=== PATIENT | male | born 1965 | race Caucasian/White ===

== ENCOUNTER 2017-10-10 09:15 | Observation (INO) ==
[2017-10-10] MEDS ORDERED: 0.9 % Sodium Chloride 1,000 ML IVC ONE (09:20)
[2017-10-10] MEDS ORDERED: Ondansetron 4 MG/2 ML VIAL IVP ONE (09:20)
[2017-10-10] MEDS ORDERED: Ketorolac 15 MG/ML VIAL IVP ONE (09:21)
[2017-10-10] MEDS ORDERED: *HR* FentaNYL (PF) 100 MCG/2 ML VIAL IVP ONE (09:21)
--- NOTE | 2017-10-10 09:24 | Emergency Department Note ---
Disposition Clinical Impression: Elevated blood pressure reading Urolithiasis Qualifiers: Urinary calculus location: ureter Qualified Code(s): N20.1 - Calculus of ureter Disposition: Admitted As Inpatient Condition: Fair Referrals: Faviola Monteiro CNP [Primary Care Provider] - Forms: ED Satisfaction Letter, Work/School Release Time of Disposition: 10:37 General Adult HPI - General Stated complaint: right flank pain Time Seen by Provider: 10/10/17 09:17 Source: patient Mode of arrival: EMS Limitations: no limitations Nursing Notes Reviewed: Yes Vital Signs Reviewed: Yes - History of Present Illness HPI Narrative: 52-year-old male with a history of recurrent kidney stones presents for evaluation of flank pain. Patient was seen last week and diagnosed with a kidney stone. Patient states that his pain is not well controlled. Patient notes that following his last ED visit his pain seemed to improve however over the past 2 days the patient's been having increasing pain. Patient was seen at an outside hospital for evaluation but declined hospitalization at that time. Patient states that he has been having episodes of emesis. Patient states that he has been taking his Percocet as scheduled but does not improve his pain. Denies any fevers. Denies any difficulty urinating. - Related Data Home Medications Medication Instructions Recorded Confirmed Acetaminophen [Tylenol] 325 mg PO Q6HR PRN 05/26/17 06/22/17 Gabapentin [Neurontin] 800 mg PO TID 05/26/17 06/22/17 OxyCODONE/APAP 5/325 [Percocet 1 tab PO Q4-6H PRN 05/26/17 06/22/17 5/325 MG] Previous Rx's Medication Instructions Recorded OxyCODONE Immed Rel [Roxicodone 5 5 mg PO Q6HR PRN #25 tablet 06/22/17 MG] Ketorolac [Toradol] 10 mg PO Q6HR 3 Days #12 tablet 08/30/17 Nitrofurantoin Monohyd/M-Cryst 100 mg PO BID #14 capsule 08/30/17 [Macrobid 100 mg Capsule] methylPREDNISolone [Medrol] 1 each PO DAILY #1 pack 08/30/17 Ondansetron ODT [Zofran ODT] 4 mg SL Q6HR PRN #15 tab.rapdis 09/10/17 HYDROcodone/Acet 5/325 mg [[place] 1 - 2 tab PO Q4H PRN 3 Days #15 tab 10/06/17 5-325 mg] Ibuprofen [Motrin] 600 mg PO Q6HR PRN #20 tab 10/06/17 Ondansetron ODT [Zofran ODT] 4 mg SL Q6HR PRN #7 tab.rapdis 10/06/17 Tamsulosin [Flomax] 0.4 mg PO DAILY #10 cap.er.24h 10/06/17 Allergies Allergy/AdvReac Type Severity Reaction Status Date / Time codeine AdvReac Itching Verified 08/30/17 18:10 tramadol AdvReac Itching Verified 08/30/17 18:10 All systems ED: reviewed and negative except as stated. Constitutional: Denies: fever Cardiovascular: Denies: chest pain Respiratory: Denies: cough, dyspnea Gastrointestinal: Reports: abdominal pain, nausea, vomiting, constipation Past Medical History - Past Medical History Source: patient Medical history: Reports: arthritis, DVT, GERD, kidney stones, liver disease, venous stasis, other Surgical history: Reports: cholecystectomy, orthopedic, other, other Psychiatric history: Reports: anxiety, depression, panic disorder - Social History Smoking Status: Current every day smoker Smokeless Tobacco Status: No Alcohol use: Reports: none Drug use: Reports: none Physical Exam - General Limitations: no limitations General appearance: alert, in no apparent distress - Head Head exam: atraumatic, normocephalic, normal inspection - Eye Eye exam: Present: normal appearance, PERRL, EOMI - ENT ENT exam: normal exam, normal oropharynx, mucous membranes moist - Neck Neck exam: Present: normal inspection - Chest Chest inspection: Present: normal inspection - Respiratory Respiratory exam: Present: normal lung sounds bilaterally - Cardiovascular Cardiovascular exam: Present: regular rate, normal rhythm - Abdominal Exam Abdominal exam: Present: soft, Non-Tender. Absent: guarding, rebound - Extremities Exam Extremities exam: Present: normal inspection - Back Exam Back exam: Present: normal inspection. Absent: CVA tenderness (R), CVA tenderness (L) - Neurological Exam Neurological exam: Present: alert, oriented X3, CN II-XII intact - Skin Skin exam: Present: warm, dry, intact, normal color Course Course Narrative: Patient seen and examined. Patient appears to be uncomfortable. Patient is diagnosed with a 6 mm obstructing stone last . Patient does have follow -up scheduled tomorrow on 9:15 however the patient states that he does not feel he will be able to make that appointment. Patient will get basic labs and kidney function. Patient also get appropriate pain control. We will discuss the case with the on-call urologist. - Reevaluation(s) Reevaluation #1: Patient seen and examined. Patient's resting comfortably. Patient is agreeable with plan of care was admission and urology consult. Time: 10:36 - Consultations Consultation #1: Spoke with Dr. Cadena who stated admit to hospitalist and will see the patient as a consult. Time: 10:32 Vital Signs Temperature 97.9 F 10/10/17 09:21 Pulse Rate 92 10/10/17 09:21 Respiratory Rate 18 10/10/17 09:21 Blood Pressure 154/94 10/10/17 09:21 O2 Sat by Pulse Oximetry 98 10/10/17 09:21 Temperature 97.9 F 10/10/17 09:21 Pulse Rate 92 10/10/17 09:24 Respiratory Rate 18 10/10/17 09:24 Blood Pressure 154/94 10/10/17 09:24 O2 Sat by Pulse Oximetry 96 10/10/17 09:24 Oxygen Delivery Oxygen Delivery Room Air Medical Decision Making - MDM Narrative Medical decision making narrative: Patient presented with concerns of renal colic. Patient was recently evaluated within the past week and diagnosed a 6 mm obstructing stone. Patient failed outpatient pain therapy. Patient presented today with worsening pain and vomiting. Had basic labs including kidney function as well as urinalysis. Patient's pain was controlled and the emergency department. Discussed the case with the on-call urologist who will evaluate the patient and consult with the hospitalist. - Lab Data Lab results reviewed: Yes I reviewed the patient's lab results. Result diagrams: 10/10/17 09:20 10/10/17 09:20 Lab Results 10/10/17 10/10/17 10/10/17 Range/Units 09:20 09:20 10:00 WBC 7.0 (4.3-11.1) K/mcL RBC 4.57 (4.19-5.50) M/mcL Hgb 14.8 (12.9-16.9) g/dL Hct 42.7 (37.5-50.1) % MCV 93.4 (83.0-100.0) fL MCH 32.4 (28.0-33.3) pg MCHC 34.7 (31.6-35.5) g/dL RDW 13.0 (11.5-14.5) % Plt Count 262 (140-400) K/mcL MPV 9.8 (9.4-12.4) fL Immature Gran % 0.3 (0-4) % Seg Neutrophils % 62.0 % Lymphocytes % 28.2 % Monocytes % 8.2 % Eosinophils % 0.9 % Basophils % 0.4 % Neutrophils # 4.3 (1.6-8.9) K/mcL Lymphocytes # 2.0 (0.6-4.6) K/mcL Monocytes # 0.6 (0.0-1.3) K/mcL Eosinophils # 0.1 (0.0-0.6) K/mcL Basophils # 0.0 (0.0-0.2) K/mcL Sodium 139 (136-145) mEq/L Potassium 3.3 L (3.5-5.1) mEq/L Chloride 112 H (98-107) mEq/L Carbon Dioxide 25 (23-29) mEq/L BUN 11 (6-20) mg/dL Creatinine 1.00 (0.70-1.30) mg/dL Est GFR ( Amer) > 60 (> 60) Est GFR (Non-Af Amer) > 60 (> 60) BUN/Creatinine Ratio 11 (6-26) Glucose 119 H (70-105) mg/dL Calculated Osmolality 289 (280-300) Calcium 9.4 (8.6-10.3) mg/dL Urine Color Dark Yellow (Yellow) Urine Clarity Clear (Clear) Urine pH 6.0 (5.0-8.0) pH Units Ur Specific [place] > 1.030 H (1.010-1.025) Urine Protein 30 H (Neg-Trace) mg/dL Urine Glucose (UA) Normal (Normal) mg/dL Urine Ketones Negative (Negative) mg/dL Urine Blood Large H (Negative) Urine Nitrite Negative (Negative) Urine Bilirubin Negative (Negative) Urine Urobilinogen Normal (Normal) mg/dL Ur Leukocyte Esterase Negative (Negative) Urine Microscopic RBC TNTC H (0-3) per hpf Urine Microscopic WBC 5-15 H (0-3) per hpf Ur Squamous Epith Cells Moderate H (None-Few) per lpf Urine Bacteria None Seen (None-Few) per hpf Hyaline Casts None Seen (None-Few) per lpf Ur Culture Indicated? NO (NO) - Radiology Data Radiology results reviewed: Yes I reviewed the patient's radiology results. Reviewed the radiology results of last . Adry - Adry Situation: Demographics Background: Presenting Complaint Assessment: Vital Signs, Course and respsone to treatment, Patient/Family Expectation Recommendation: Recommendation based on pending studies, treatments, or consults Adry Report Given to: Dr. Tamika Rider Repor Time: 10:36
--- NOTE | 2017-10-10 09:30 | Emergency Department Note ---
Disposition Clinical Impression: Elevated blood pressure reading Urolithiasis Qualifiers: Urinary calculus location: ureter Qualified Code(s): N20.1 - Calculus of ureter Disposition: Admitted As Inpatient Condition: Fair General Adult HPI - General Chief complaint: ED Abdominal Pain Stated complaint: right flank pain Time Seen by Provider: 10/10/17 09:17 Source: patient Mode of arrival: EMS Limitations: no limitations - History of Present Illness Pain Scale: 8 - Related Data Home Medications Medication Instructions Recorded Confirmed Gabapentin [Neurontin] 800 mg PO TID 10/10/17 10/10/17 OxyCODONE/APAP 5/325 [Percocet 1 tab PO QID PRN 10/10/17 10/10/17 5/325 MG] Allergies Allergy/AdvReac Type Severity Reaction Status Date / Time codeine AdvReac Itching Verified 10/10/17 11:08 tramadol AdvReac Itching Verified 10/10/17 11:08 Constitutional: Denies: fever Cardiovascular: Denies: chest pain Respiratory: Denies: cough, dyspnea Gastrointestinal: Reports: abdominal pain, nausea, vomiting, constipation Past Medical History - Past Medical History Medical history: Reports: arthritis, DVT, GERD, kidney stones, liver disease, venous stasis, other Surgical history: Reports: cholecystectomy, orthopedic, other, other Psychiatric history: Reports: anxiety, depression, panic disorder - Social History Smoking Status: Current every day smoker Smokeless Tobacco Status: No Alcohol use: Reports: none Drug use: Reports: none Physical Exam - General Limitations: no limitations General appearance: alert, in no apparent distress Course Vital Signs Temperature 97.9 F 10/10/17 09:21 Pulse Rate 92 10/10/17 09:21 Respiratory Rate 18 10/10/17 09:21 Blood Pressure 154/94 10/10/17 09:21 O2 Sat by Pulse Oximetry 98 10/10/17 09:21 Temperature 98.0 F 10/10/17 14:19 Pulse Rate 72 10/10/17 14:19 Respiratory Rate 18 10/10/17 14:19 Blood Pressure 98/62 10/10/17 14:19 O2 Sat by Pulse Oximetry 97 10/10/17 14:19 Oxygen Delivery Oxygen Delivery Room Air Medical Decision Making - Lab Data Result diagrams: 10/10/17 09:20 10/10/17 09:20 Lab Results 10/10/17 10/10/1710/10/18 Range/Units 09:20 09:20 10:00 WBC 7.0 (4.3-11.1) K/mcL RBC 4.57 (4.19-5.50) M/mcL Hgb 14.8 (12.9-16.9) g/dL Hct 42.7 (37.5-50.1) % MCV 93.4 (83.0-100.0) fL MCH 32.4 (28.0-33.3) pg MCHC 34.7 (31.6-35.5) g/dL RDW 13.0 (11.5-14.5) % Plt Count 262 (140-400) K/mcL MPV 9.8 (9.4-12.4) fL Immature Gran % 0.3 (0-4) % Seg Neutrophils % 62.0 % Lymphocytes % 28.2 % Monocytes % 8.2 % Eosinophils % 0.9 % Basophils % 0.4 % Neutrophils # 4.3 (1.6-8.9) K/mcL Lymphocytes # 2.0 (0.6-4.6) K/mcL Monocytes # 0.6 (0.0-1.3) K/mcL Eosinophils # 0.1 (0.0-0.6) K/mcL Basophils # 0.0 (0.0-0.2) K/mcL Sodium 139 (136-145) mEq/L Potassium 3.3 L (3.5-5.1) mEq/L Chloride 112 H (98-107) mEq/L Carbon Dioxide 25 (23-29) mEq/L BUN 11 (6-20) mg/dL Creatinine 1.00 (0.70-1.30) mg/dL Est GFR ( Amer) > 60 (> 60) Est GFR (Non-Af Amer) > 60 (> 60) BUN/Creatinine Ratio 11 (6-26) Glucose 119 H (70-105) mg/dL Calculated Osmolality 289 (280-300) Calcium 9.4 (8.6-10.3) mg/dL Urine Color Dark Yellow (Yellow) Urine Clarity Clear (Clear) Urine pH 6.0 (5.0-8.0) pH Units Ur Specific [place] > 1.030 H (1.010-1.025) Urine Protein 30 H (Neg-Trace) mg/dL Urine Glucose (UA) Normal (Normal) mg/dL Urine Ketones Negative (Negative) mg/dL Urine Blood Large H (Negative) Urine Nitrite Negative (Negative) Urine Bilirubin Negative (Negative) Urine Urobilinogen Normal (Normal) mg/dL Ur Leukocyte Esterase Negative (Negative) Urine Microscopic RBC TNTC H (0-3) per hpf Urine Microscopic WBC 5-15 H (0-3) per hpf Ur Squamous Epith Cells Moderate H (None-Few) per lpf Urine Bacteria None Seen (None-Few) per hpf Hyaline Casts None Seen (None-Few) per lpf Ur Culture Indicated? NO (NO) Attestation Statement - Attestation Attestation: I examined this patient and my medical decision-making was reviewed with the Resident Physician. I agree with the documented findings, disposition and treatment plan as described except to the extent set forth below. PT to ED with right flank pain. Seen last week and dx with 6mm obstructing stone. States pain has not changed. Apt to see urology tomorrow. Has been taking PErcocet. Pt sitting on the side of the bed in no distress .RIght CVA tenderness on exam. Plan. PAin control, UA, discuss with urology.
[2017-10-10 09:40] LABS: Basophils % 0.4 %; Eosinophils # 0.1 K/mcL (0.0-0.6); Eosinophils % 0.9 %; Hematocrit 42.7 % (37.5-50.1); Hemoglobin 14.8 g/dL (12.9-16.9); Immature Granulocytes % 0.3 % (0-4); Lymphocytes % 28.2 %; Mean Corpuscular HGB Conc 34.7 g/dL (31.6-35.5); Mean Corpuscular Hemoglobin 32.4 pg (28.0-33.3); Mean Corpuscular Volume 93.4 fL (83.0-100.0); Mean Platelet Volume 9.8 fL (9.4-12.4); Monocytes # 0.6 K/mcL (0.0-1.3); Monocytes % 8.2 %; Neutrophils # 4.3 K/mcL (1.6-8.9); Platelet Count 262 K/mcL (140-400); Red Blood Count 4.57 M/mcL (4.19-5.50)
[2017-10-10 10:00] LABS: BUN/Creatinine Ratio 11 (6-26); Blood Urea Nitrogen 11 mg/dL (6-20); Calcium 9.4 mg/dL (8.6-10.3); Carbon Dioxide 25 mEq/L (23-29); Chloride 112 mEq/L (98-107); Glucose 119 mg/dL (70-105); Osmolality,Calculated 289 (280-300); Potassium 3.3 mEq/L (3.5-5.1); Sodium 139 mEq/L (136-145); eGFR For African Americans > 60 (> 60); eGFR For Non-African Americans > 60 (> 60)
[2017-10-10 10:12] LABS: Bilirubin,Urine Negative (Negative); Blood,Urine Large (Negative); Clarity,Urine Clear (Clear); Color,Urine Dark Yellow (Yellow); Glucose,Urine (UA) Normal (Normal); Ketones,Urine Negative (Negative); Leukocyte Esterase,Urine Negative (Negative); Nitrite,Urine Negative (Negative); Protein,Urine 30 mg/dL (Neg-Trace); Specific Gravity,Urine > 1.030 (1.010-1.025); Urobilinogen,Urine Normal (Normal)
[2017-10-10 10:15] LABS: Bacteria,Urine None Seen per hpf (None-Few); Hyaline Casts,Urine None Seen per lpf (None-Few); RBC,Urine TNTC per hpf (0-3); Squamous Epithelial Cell,Urine Moderate per lpf (None-Few)
[2017-10-10] MEDS ORDERED: Naloxone 0.4 MG/ML INJ IVP PRN (11:12)
--- NOTE | 2017-10-10 11:23 | Internal Med History&Physical ---
Date of Encounter: 10/10/17 Time of Encounter: 11:20 Internal Medicine - H&P: HPI Chief complaint: Back pain Admitted From: Emergency Dept Plans for Post Hospital Care: Home History of present illness: Mr. Lawson is a 52 year old male is medical history of nephrolithiasis who presented with intractable back pain related to his renal stones. Patient was seen in the emergency room roughly 4 days ago and was evaluated with a 6 mm obstructing stone in the mid to distal ureter on the right side. He was given IV pain medications and sent home with prescription of Toradol as well as opiates that he continues to take for his chronic back pain he started noticing some relief in his pain immediately upon discharge but then the pain came back and has been very severe over the last 24-48 hours. He is also complaining of nausea and vomiting for at least 2 days out of the last 4 days. His pain is described as sharp and located in the back it does not radiate to his groin and has improved to 8/10 from 10/10 when he initially arrived to the ER. He also is feeling nauseated but has not thrown up since he has been in the ER. He denies any visible chills, shakes at this point. He did complete a one-week course of oral antibiotics about 2 weeks ago. Since he has failed an outpatient treatment for renal stones, he has been advised admission with consult to urology and he is nothing by mouth at this time and hospital medicine will be admitting him in consultation with urology service. Past Med Surg Social Fam HX - Past Medical History Medical history: arthritis, DVT, GERD, kidney stones, liver disease, venous stasis, other Psychiatric history: anxiety, depression, panic disorder - Past Surgical History Surgical History: cholecystectomy, orthopedic, other, other - Social History Smoking Status: Current every day smoker Smokeless Tobacco Status: No Alcohol use: none Drug use: none - Family History Father Adopted: No Hx Family Endocrine Disorder: Yes (Diabetes) - Additional Family History Additional family history: Mother had a history of heart problems unsure of the exact history at this point Internal Medicine - H&P: Meds Gabapentin [Neurontin] 800 mg PO TID 10/10/17 [History] OxyCODONE/APAP 5/325 [Percocet 5/325 MG] 1 tab PO QID PRN 10/10/17 [History] 3 Allergy/AdvReac Type Severity Reaction Status Date / Time codeine AdvReac Itching Verified 10/10/17 11:08 tramadol AdvReac Itching Verified 10/10/17 11:08 All Systems PM: A 10-system review of systems was performed and is negative for pertinent findings except as documented above in the HPI. - Constitutional Vitals: Temp Pulse Resp BP Pulse Ox 98.3 F 92 18 154/94 96 10/10/17 11:10 10/10/17 09:24 10/10/17 11:10 10/10/17 11:10 10/10/17 09:24 Exam: GENERAL: Alert, moderate distress, cooperative EYES: PERRLA, EOMI EARS: External ears normal, canals clear OROPHARYNX: Lips, mucosa, and tongue normal. Teeth and gums normal. Oropharynx normal. NECK: No jugulovenous distention, No carotid bruits, Carotid pulse normal contour, Supple LUNGS: Lungs clear to auscultation, Good diaphragmatic excursion CARDIAC: Normal S1 and S2; no rubs, murmurs, or gallops ABDOMEN: Abdomen soft, non-tender, BS normal, No masses or organomegaly BACK- mild CVA TTP on right side. EXTREMITIES: Extremities normal, no deformities, edema, clubbing or skin discoloration. Good capillary refill., No ulcers NEURO: Reflexes normal and symmetric. Sensation grossly intact, Cranial nerves II-XII intact PULSES: 2+ radial, 2+ carotid Rest of the exam is non contributory Internal Med - H&P Results - Labs CBC & Chem 7: 10/10/17 09:20 10/10/17 09:20 - Assessment and plan (1) Urolithiasis Current Visit: Yes Status: Acute Assessment and plan: Has a 6 mm obstructing stone in the right mid to distal ureter along with evidence of hematuria and his UA. Patient also has an 8 mm nonobstructing stone on the left side. He has failed outpatient management for pain control and continues to experience escalation of his pain as well as nausea and vomiting. We will admit him to medicine service and started on IV fluids. For pain control I would start him on Toradol 30 mg at least every 6 hours. I will also start him on a max and consult urology for further care. He might need intervention, cystoscopy, ureteral stenting. He does not have indication for infection nor a white count suggesting an underlying UTI and I would hold off antibiotics at this time. He did hint that he knows it is probably a calcium oxalate stones. I have encouraged him to keep up his hydration as an outpatient. Qualifiers: Urinary calculus location: ureter Qualified Code(s): N20.1 - Calculus of ureter (2) Elevated blood pressure reading Current Visit: Yes Status: Acute Assessment and plan: one time reading. Patient does not have a history of hypertension. Most likely from ongoing pain. We will continue to monitor this closely on the floor and check his vitals q shift (3) Lumbar radiculitis Current Visit: No Status: Chronic Assessment and plan: History of degenerative back disease. He takes as needed opiates as an outpatient in addition to gabapentin. I will continue his gabapentin but hold onto resuming his opiates because he will be on IV Toradol. Once have a clear direction from urology and he has a a procedure done or the resolution of his symptoms then we would consider resuming his opiates - Time Spent With Patient Total time spent is greater than 50% in coordination of care (as documented) at patient's floor/unit and/or counseling patient: Greater than 35 minutes
[2017-10-10] MEDS: Ketorolac 30 MG/ML VIAL IVP PRN ×2 (12:21→18:27)
[2017-10-10] MEDS: Ondansetron 4 MG/2 ML VIAL IVP PRN ×2 (12:22→18:27)
[2017-10-10] MEDS: 0.9 % Sodium Chloride 1,000 ML IVC SCH ×2 (12:22→21:47)
[2017-10-10] MEDS ORDERED: *HR* OxyCODONE/APAP 5/325 TABLET PO PRN (14:22)
--- NOTE | 2017-10-10 14:28 | Urology - Consult Note ---
Date of Encounter: 10/10/17 Time of Encounter: 14:25 - Assessment and Plan (1) Urolithiasis Current Visit: Yes Status: Acute Assessment and plan: We will obtain KUB for evaluation of status of stone. Patient will be tentatively scheduled tomorrow for right ureteroscopic stone extraction if he fails to pass his stone tonight. Qualifiers: Urinary calculus location: ureter Qualified Code(s): N20.1 - Calculus of ureter Urology CN:HPI Consult date: 10/10/17 Reason for consult Urology: Other (right ureteral stone) Requesting physician: Chacorta Yeager History of present illness: Tino is a 52-year-old male with a history of right ureteral stone. Patient was in the emergency department last with severe right flank pain. He presented back today secondary to worsening pain of tenderness 10. Pain was sharp in nature with radiation to his right groin. Patient also with nausea vomiting. No fevers. Laboratory values were viewed and unremarkable. Past Med Surg Social Fam HX - Past Medical History Medical history: arthritis, DVT, GERD, kidney stones, liver disease, venous stasis, other Psychiatric history: anxiety, depression, panic disorder - Past Surgical History Surgical History: cholecystectomy, orthopedic, other, other - Social History Smoking Status: Current every day smoker Smokeless Tobacco Status: No Alcohol use: none Drug use: none - Family History Father Adopted: No Hx Family Endocrine Disorder: Yes (Diabetes) Medications and Allergies Gabapentin [Neurontin] 800 mg PO TID 10/10/17 [History] OxyCODONE/APAP 5/325 [Percocet 5/325 MG] 1 tab PO QID PRN 10/10/17 [History] 3 Allergy/AdvReac Type Severity Reaction Status Date / Time codeine AdvReac Itching Verified 10/10/17 11:08 tramadol AdvReac Itching Verified 10/10/17 11:08 Review of Systems - Constitutional no chills, no fever(s) - EENT Nose, mouth and throat: no dizziness - Cardiovascular no chest pain - Respiratory no cough, no dyspnea - Gastrointestinal nausea, vomiting - Genitourinary as per HPI - Musculoskeletal no back pain, no muscle weakness - Integumentary no erythema, no swelling - Neurological no confusion - Psychiatric no confusion, no depression - Hematologic/Lymphatic no easy bleeding, no lymphadenopathy - Allergic/Immunologic no throat swelling, no wheezing Exam Initial Vital Signs Temp Pulse Resp BP Pulse Ox 97.9 F 92 18 154/94 98 10/10/17 09:21 10/10/17 09:21 10/10/17 09:21 10/10/17 09:21 10/10/17 09:21 General/Neuological: alert and oriented x 3 Eyes: normal pupils, non-icteric Neck: no lymphadenopathy noted, supple to touch ABD: soft, nontender, no masses palpated, good bowel sounds Back: no pain on percussion bilaterally Skin: no rashes noted Musculoskeletal: normal gait, FROMx4 Urology Results - Labs 10/10/17 09:20 10/10/17 09:20 Abnormal lab results Potassium 3.3 mEq/L (3.5-5.1) L 10/10/17 09:20 Chloride 112 mEq/L (98-107) H 10/10/17 09:20 Glucose 119 mg/dL (70-105) H 10/10/17 09:20 Ur Specific [place] > 1.030 (1.010-1.025) H 10/10/17 10:00 Urine Protein 30 mg/dL (Neg-Trace) H 10/10/17 10:00 Urine Blood Large (Negative) H 10/10/17 10:00 Urine Microscopic RBC TNTC per hpf (0-3) H 10/10/17 10:00 Urine Microscopic WBC 5-15 per hpf (0-3) H 10/10/17 10:00 Ur Squamous Epith Cells Moderate per lpf (None-Few) H 10/10/17 10:00 All other labs normal. - Imaging CT scan - abdomen: image reviewed CT scan - pelvis: image reviewed Consult Discharge Plan - Plan Referrals: Faviola Monteiro, [employer] [Primary Care Provider] -
[2017-10-10] MEDS: Gabapentin 400 MG CAPSULE PO SCH ×2 (14:56→22:14)
[2017-10-10] MEDS: Nicotine 21 MG PATCH.TD24 TD SCH (14:56)
--- NOTE | 2017-10-10 19:10 | Anesthesia Evaluation PreOp ---
Date of Encounter: 10/10/17 Time of Encounter: 19:07 - Past History Planned Operation: Right ureteral stone Cardiac History: Denies any Significant Hx Pulmonary History: Smoker, Pack/yr (35pk/tr) APPLICATIONS PROGRAMMER ANALYST History: Other (RLS, legally blind Left Eye,) Other Medical History: GERD Anesthesia History: No Prior Anesthetic Complications, Past Anesthesia (Renal Stones, wrist) Alcohol Use: none Drug use: none Medications and Allergies Gabapentin [Neurontin] 800 mg PO TID 10/10/17 [History] OxyCODONE/APAP 5/325 [Percocet 5/325 MG] 1 tab PO QID PRN 10/10/17 [History] 3 Allergy/AdvReac Type Severity Reaction Status Date / Time codeine AdvReac Itching Verified 10/10/17 11:08 tramadol AdvReac Itching Verified 10/10/17 11:08 - Meds/Allergy Pre-op Review Medications Reviewed: Yes Allergies Reviewed: Yes Beta Blockers on Current Med List: No Anesthesia Results - Labs 10/10/17 09:20 10/10/17 09:20 Exercise Stress Name: Tino Lawson Date of Study: 11/09/2016 Date: 1965 Ht: 69.0in Medical Record#: [id number] Age: 51 Wt: 260.0lb Gender: Male BSA: 2.31 Order #: [id number] Location: [facility] OP Room #: Reading Physician: Ghada Isaacs DO Technologist: Elayne Leonard RRT Supervising Provider: Jose Eduardo Knowles CNP Primary Physician: Zenon Lin MD Ordering Physician: Faviola Monteiro CNP Indication: Shortness of breath, Chest Pain Impressions: Stress ECG was negative for ischemia. Exercise capacity was good. Normal hemodynamic response to exercise. No arrhythmias noted with stress. Patient had no chest pain with stress. Findings: Baseline ECG demonstrates NSR, HR 82 bpm with possible RV conduction delay. Stress ECG is negative for ischemia. No arrhythmias noted during exercise or recovery. The patient demonstrated a normal blood pressure response. The exercise capacity was good. No chest pain during stress procedure. - Imaging EKG: report reviewed (colonoscopy, EGD, renal stones, varicose veins, GB, R. wrist ORIF, Low back mass,) Anesthesia Exam Vital Signs/O2 Sat, Most Current Temp Pulse Resp BP Pulse Ox 98.0 F 72 18 98/62 97 10/10/17 14:19 10/10/17 14:19 10/10/17 14:19 10/10/17 14:19 10/10/17 14:19 - HEENT Pupil (Motor): Pupils equal, EOMI Mallampati: II Teeth: Normal Oral Opening: Greater than 3 - APPLICATIONS PROGRAMMER ANALYST LOC: Oriented APPLICATIONS PROGRAMMER ANALYST Motor: Normal RUE, Normal LUE, Normal RLE, Normal LLE, Normal Face APPLICATIONS PROGRAMMER ANALYST Sensory: Normal: RUE, LUE, RLE, LLE, Face - Cardiac Rhythm: Regular Murmur: None JVD: No Carotid Bruit: No - Pulmonary Breath Sounds: bilateral Clear Respiratory Effort: Symmetrical Anesthesia Assess/Plan ASA Score: 2 Modified Adrienne Scale for Level of Consciousness: Cooperative, oriented, and tranquil Anesthetic Plan: General Autologous Blood: Yes Monitoring Plan: Standard Monitors Recovery Plan: PACU
[2017-10-10] MEDS ORDERED: OXYCODONE Oral CONC 10 MG/0.5 ML ORAL.SYG SL PRN (21:32)
[2017-10-10] MEDS: OXYCODONE Oral CONC 10 MG/0.5 ML ORAL.SYG SL PRN (22:54)
[2017-10-11] MEDS: Ondansetron 4 MG/2 ML VIAL IVP PRN ×3 (00:35→12:40)
[2017-10-11] MEDS: OXYCODONE Oral CONC 10 MG/0.5 ML ORAL.SYG SL PRN ×2 (05:41→12:37)
[2017-10-11] MEDS: 0.9 % Sodium Chloride 1,000 ML IVC SCH (06:01)
[2017-10-11 06:26] LABS: Basophils % 0.6 %; Eosinophils # 0.1 K/mcL (0.0-0.6); Eosinophils % 0.9 %; Hematocrit 36.7 % (37.5-50.1); Immature Granulocytes % 0.4 % (0-4); Lymphocytes # 2.1 K/mcL (0.6-4.6); Lymphocytes % 38.9 %; Mean Corpuscular HGB Conc 33.5 g/dL (31.6-35.5); Mean Corpuscular Hemoglobin 32.1 pg (28.0-33.3); Mean Corpuscular Volume 95.8 fL (83.0-100.0); Mean Platelet Volume 10.3 fL (9.4-12.4); Monocytes # 0.3 K/mcL (0.0-1.3); Monocytes % 6.4 %; Neutrophils # 2.8 K/mcL (1.6-8.9); Platelet Count 205 K/mcL (140-400); Red Blood Count 3.83 M/mcL (4.19-5.50); Red Cell Distribution Width 13.1 % (11.5-14.5); Segmented Neutrophils % 52.8 %
[2017-10-11 06:30] LABS: Hemoglobin 12.3 g/dL (12.9-16.9)
[2017-10-11 06:51] LABS: Alanine Aminotransferase 24 Units/L (7-52); Albumin 3.2 g/dL (3.5-5.7); Albumin/Globulin Ratio 1.6 (1.1-2.2); Alkaline Phosphatase 56 Units/L (34-104); Aspartate Amino Transferase 19 Units/L (13-39); BUN/Creatinine Ratio 13 (6-26); Bilirubin,Total 0.4 mg/dL (0.3-1.0); Blood Urea Nitrogen 11 mg/dL (6-20); Calcium 8.4 mg/dL (8.6-10.3); Carbon Dioxide 22 mEq/L (23-29); Chloride 114 mEq/L (98-107); Glucose 91 mg/dL (70-105); Osmolality,Calculated 293 (280-300); Potassium 3.8 mEq/L (3.5-5.1); Sodium 142 mEq/L (136-145); Total Protein 5.2 g/dL (6.4-8.9); eGFR For African Americans > 60 (> 60); eGFR For Non-African Americans > 60 (> 60)
[2017-10-11] MEDS ORDERED: *HR* Promethazine 25 MG/ML VIAL IVP PRN ×2 (08:06→15:37)
--- NOTE | 2017-10-11 08:08 | Internal Med Progress Note ---
<Perfecto Du - Last Filed: 10/11/17 11:36> Date of Encounter: 10/11/17 Time of Encounter: 08:07 - Assessment and plan (1) Urolithiasis Current Visit: Yes Status: Acute Assessment and plan: - Has a 6 mm obstructing stone in the right mid to distal ureter along with evidence of hematuria and his UA. - Patient also has an 8 mm nonobstructing stone on the left side. - He has failed outpatient management for pain control and continues to experience escalation of his pain as well as nausea and vomiting. - Urology was consulted and emergency room. Has evaluated and will plan for kidney stone extractions afternoon - Repeat KUB performed by urology shows distal migration of the stone now located in the mid sacrum Plan - Toradol 30 mg at least every 6 hours and sublingual oxycodone for his pain. - Continue Flomax - Scheduled for ureteral stone extraction if he does not pass importance afternoon - Previous history of kidney stones, possibly calcium oxalate in origin. I have encouraged him to keep up his hydration as an outpatient. Qualifiers: Urinary calculus location: ureter Qualified Code(s): N20.1 - Calculus of ureter (2) Lumbar radiculitis Current Visit: No Status: Chronic Assessment and plan: - History of degenerative back disease. -He takes as needed opiates as an outpatient in addition to gabapentin. - States back pain well controlled, kidney stone pain bothering him now Plan - Continue pain medications as above for kidney stone (3) Elevated blood pressure reading Current Visit: Yes Status: Acute Assessment and plan: One-time reading on presentation likely secondary to pain Currently well controlled at 103/73 No reported history of hypertension, we will continue to monitor (4) Tobacco use Current Visit: Yes Status: Acute Assessment and plan: - Current every day smoker - He was encouraged to quit, however is not ready at this time (5) DVT prophylaxis Current Visit: Yes Status: Acute Assessment and plan: - Early ambulation given hematuria. We will hold off on pharmacologic anticoagulation of this time - Time Spent With Patient Total time spent is greater than 50% in coordination of care (as documented) at patient's floor/unit and/or counseling patient: - Subjective Interval history: Patient was seen and examined this morning at bedside. He reports that his pain is improved from admission however still present. States that it started 5 days ago located in his right flank and is now traveled around the back is sitting in the right pelvis. States he is still experiencing some nausea however is improved, no reports of vomiting. He has been evaluated by urology and is tentatively scheduled for a kidney stone removal this afternoon. No complaints of fevers, chills, shortness of breath, chest pain - Constitutional Vitals: Temp Pulse Resp BP Pulse Ox 98 F 76 15 103/73 96 10/11/17 06:54 10/11/17 06:54 10/11/17 06:54 10/11/17 06:54 10/11/17 06:54 Exam: Gen.: Vitals noted. No acute distress. AAOx3 HEENT: PERRL/EOMI, oropharynx clear, Normocephalic, atraumatic, MMM Cardiac: RRR, no murmur, +S1/S2 Pulmonary: No rales or rhonchi, equal chest expansion. Very minor wheezing at bases Abdomen: soft, minimally tender in right lower quadrant, BS noted, no guarding Back: Reports mild bilateral CVA tenderness MSK: ROM intact, no joint swelling noted Extremities: no BLE edema, nontender calf, no cyanosis or clubbing Neuro: A&Ox3, moves all extremities, no focal deficits Psych: Appropriate mood and behavior Internal Medicine: Result - Labs CBC & Chem 7: 10/11/17 05:19 10/11/17 05:19 Labs: Short CBC 10/11/17 Range/Units 05:19 WBC 5.3 (4.3-11.1) K/mcL Hgb 12.3 L D (12.9-16.9) g/dL Hct 36.7 L (37.5-50.1) % Plt Count 205 (140-400) K/mcL Neutrophils # 2.8 (1.6-8.9) K/mcL BMP 10/11/17 05:19 Sodium 142 Potassium 3.8 Chloride 114 H Carbon Dioxide 22 L BUN 11 Creatinine 0.88 Glucose 91 Calcium 8.4 L Liver Function 10/11/17 Range/Units 05:19 Total Bilirubin 0.4 (0.3-1.0) mg/dL AST 19 (13-39) Units/L ALT 24 (7-52) Units/L Alkaline Phosphatase 56 (34-104) Units/L Albumin 3.2 L (3.5-5.7) g/dL - Impressions Impressions KUB X-Ray 10/10/17 14:26 IMPRESSION: Distal migration of the right ureteral calculus, now projecting over the mid sacrum. D/ / Roge Lugo MD / Roge Lugo MD Interpreting Provider: Roge Lugo MD Consult Discharge Plan - Plan Referrals: Keaton Cadena MD [Partnered Physician] - <Ramiro Guerra - Last Filed: 10/11/17 17:39> Date of Encounter: 10/11/17 - Assessment and plan (1) Lumbar radiculitis Current Visit: No Status: Chronic (2) Urolithiasis Current Visit: Yes Status: Acute Qualifiers: Urinary calculus location: ureter Qualified Code(s): N20.1 - Calculus of ureter (3) Elevated blood pressure reading Current Visit: Yes Status: Acute (4) Tobacco use Current Visit: Yes Status: Acute (5) DVT prophylaxis Current Visit: Yes Status: Acute - Time Spent With Patient Total time spent is greater than 50% in coordination of care (as documented) at patient's floor/unit and/or counseling patient: - Constitutional Vitals: Temp Pulse Resp BP Pulse Ox 98.1 F 76 16 121/78 98 10/11/17 16:45 10/11/17 16:45 10/11/17 16:45 10/11/17 16:45 10/11/17 16:45 Internal Medicine: Result - Labs CBC & Chem 7: 10/11/17 05:19 10/11/17 05:19 Labs: Short CBC 10/11/17 Range/Units 05:19 WBC 5.3 (4.3-11.1) K/mcL Hgb 12.3 L D (12.9-16.9) g/dL Hct 36.7 L (37.5-50.1) % Plt Count 205 (140-400) K/mcL Neutrophils # 2.8 (1.6-8.9) K/mcL BMP 10/11/17 05:19 Sodium 142 Potassium 3.8 Chloride 114 H Carbon Dioxide 22 L BUN 11 Creatinine 0.88 Glucose 91 Calcium 8.4 L Liver Function 10/11/17 Range/Units 05:19 Total Bilirubin 0.4 (0.3-1.0) mg/dL AST 19 (13-39) Units/L ALT 24 (7-52) Units/L Alkaline Phosphatase 56 (34-104) Units/L Albumin 3.2 L (3.5-5.7) g/dL - Impressions Impressions KUB X-Ray 10/10/17 14:26 IMPRESSION: Distal migration of the right ureteral calculus, now projecting over the mid sacrum. D/ / Roge Lugo MD / Roge Lugo MD Interpreting Provider: Roge Lugo MD Fluoroscopy 10/11/17 00:00 IMPRESSION: Intraprocedural fluoroscopic spot images as above. See separate procedure report for more information. D/ / 10/11/2017 15:14:18 Mathieu Calvillo MD / mayank Interpreting Provider: Mathieu Calvillo MD KUB X-Ray 10/11/17 00:00 IMPRESSION: Intraprocedural fluoroscopic spot images as above. See separate procedure report for more information. D/ /11/2017 15:14:18 Mathieu Calvillo MD / mayank Interpreting Provider: Mathieu Calvillo MD - Attending Attestation I examined this patient and my medical decision-making was reviewed with the Resident Physician on 10/11/17. I agree with the documented findings, disposition and treatment plan as described except to the extent set forth below. Please see discharge summary of today.
[2017-10-11] MEDS: Gabapentin 400 MG CAPSULE PO SCH (09:07)
[2017-10-11] MEDS: Ketorolac 30 MG/ML VIAL IVP PRN (09:07)
--- NOTE | 2017-10-11 09:13 | Urology Progress Note ---
Date of Encounter: 10/11/17 Time of Encounter: 09:12 - Assessment and Plan (1) Urolithiasis Current Visit: Yes Status: Acute Assessment and plan: Plan on right ureteroscopic stone extraction today. Qualifiers: Urinary calculus location: ureter Qualified Code(s): N20.1 - Calculus of ureter Progress Note Narrative: Patient seen this morning. KUB reviewed which shows that stone has moved distally just over the sacrum. Pain is well-controlled this time. Objective Initial Vital Signs Temp Pulse Resp BP Pulse Ox 97.9 F 92 18 154/94 98 10/10/17 09:21 10/10/17 09:21 10/10/17 09:21 10/10/17 09:21 10/10/17 09:21 - General physical appearance Present: well developed - Abdomen Present: soft - Integumentary Present: no rash, no abnormal pigmentation - Labs 10/11/17 05:19 10/11/17 05:19 Diabetes panel 10/11/17 Range/Units 05:19 Sodium 142 (136-145) mEq/L Potassium 3.8 (3.5-5.1) mEq/L Chloride 114 H (98-107) mEq/L Carbon Dioxide 22 L (23-29) mEq/L BUN 11 (6-20) mg/dL Creatinine 0.88 (0.70-1.30) mg/dL Glucose 91 (70-105) mg/dL Calcium 8.4 L (8.6-10.3) mg/dL AST 19 (13-39) Units/L ALT 24 (7-52) Units/L Alkaline Phosphatase 56 (34-104) Units/L Albumin 3.2 L (3.5-5.7) g/dL Calcium panel 10/11/17 Range/Units 05:19 Calcium 8.4 L (8.6-10.3) mg/dL Albumin 3.2 L (3.5-5.7) g/dL Pituitary panel 10/11/17 Range/Units 05:19 Sodium 142 (136-145) mEq/L Potassium 3.8 (3.5-5.1) mEq/L Chloride 114 H (98-107) mEq/L Carbon Dioxide 22 L (23-29) mEq/L BUN 11 (6-20) mg/dL Creatinine 0.88 (0.70-1.30) mg/dL Glucose 91 (70-105) mg/dL Calcium 8.4 L (8.6-10.3) mg/dL Adrenal panel 10/11/17 Range/Units 05:19 Sodium 142 (136-145) mEq/L Potassium 3.8 (3.5-5.1) mEq/L Chloride 114 H (98-107) mEq/L Carbon Dioxide 22 L (23-29) mEq/L BUN 11 (6-20) mg/dL Creatinine 0.88 (0.70-1.30) mg/dL Glucose 91 (70-105) mg/dL Calcium 8.4 L (8.6-10.3) mg/dL Total Bilirubin 0.4 (0.3-1.0) mg/dL AST 19 (13-39) Units/L ALT 24 (7-52) Units/L Alkaline Phosphatase 56 (34-104) Units/L Albumin 3.2 L (3.5-5.7) g/dL Consult Discharge Plan - Plan Referrals: Keaton Cadena MD [Partnered Physician] -
[2017-10-11] MEDS ORDERED: *HR* FentaNYL (PF) 100 MCG/2 ML VIAL ONE (13:47)
[2017-10-11] MEDS ORDERED: *HR* Midazolam HCl 2 MG/2 ML VIAL ONE (13:47)
[2017-10-11] MEDS ORDERED: *HR* Propofol 200 MG/20 ML VIAL IVP ONE (13:48)
[2017-10-11] MEDS ORDERED: Lidocaine -MPF 2% 2 ML VIAL ONE (13:50)
[2017-10-11] MEDS ORDERED: Isovue-300 50 ML VIAL IVP ONE (13:51)
[2017-10-11] MEDS ORDERED: Dexamethasone 4 MG/ML VIAL ONE (14:15)
[2017-10-11] MEDS ORDERED: Ondansetron 4 MG/2 ML VIAL ONE (14:15)
[2017-10-11] MEDS ORDERED: Ketorolac 30 MG/ML VIAL ONE (14:15)
[2017-10-11] MEDS ORDERED: *HR* OxyCODONE Immed Rel 5 MG TABLET PO PRN ×2 (14:24→15:14)
[2017-10-11] MEDS ORDERED: Ondansetron 4 MG/2 ML VIAL IVP ONE (14:24)
[2017-10-11] MEDS ORDERED: ceFAZolin 2,000 MG in Water for inj. (sterile) 20 ML IVP ONE (14:24)
[2017-10-11] MEDS ORDERED: CeFAZolin Syr 2,000MG/20 ML 2,000 MG/20 ML SYRINGE IVPB ONE ×2 (14:45→15:37)
--- NOTE | 2017-10-11 15:36 | Operative Note ---
Date of procedure: 10/11/17 Pre-op diagnosis: right ureteral stone Procedure: Right ureteroscopic laser lithotripsy of stone, right ureteroscopic basket retrieval of stone, right 4.8 x 26 cm ureteral stent placement Anesthesia: GAGANDEEPA Surgeon: Keaton Cadena Was there an financial services assistant present: No Estimated blood loss (cc): 0 Specimen: Right ureteral stone Condition: stable Disposition: PACU Procedure in Detail: Patient was prepped and draped in normal sterile fashion. Timeout procedure performed. I then inserted the semirigid ureteroscope into the patient's urethra and advanced into the bladder. The right ureteral orifice was then cannulated. I then encountered the 6 mm stone in the distal right ureter. Holmium laser was then used to fragment the stone. All stone fragments were removed using a basket. I then placed a sensor wire into the right kidney and placed a 4.8 x 26 cm ureteral stent with good curl seen in the right kidney and the bladder. A string was left for easy removal in 2-3 days.
[2017-10-11] MEDS ORDERED: Ondansetron 4 MG/2 ML VIAL IVP PRN (15:37)
[2017-10-11] MEDS ORDERED: Naloxone 0.4 MG/ML INJ IVP PRN (15:37)
[2017-10-11] MEDS ORDERED: OXYCODONE Oral CONC 10 MG/0.5 ML ORAL.SYG SL PRN (15:37)
[2017-10-11] MEDS ORDERED: Ketorolac 30 MG/ML VIAL IVP PRN (15:37)
--- NOTE | 2017-10-11 15:37 | Anesthesia Evaluation Post Op ---
Date of Encounter: 10/11/17 Time of Encounter: 15:36 - Vital Signs Vital Signs: Last Vital Signs Temp 98.2 F 10/11/17 15:29 Pulse 71 10/11/17 15:29 Resp 14 10/11/17 15:29 BP 137/86 10/11/17 15:29 Pulse Ox 97 10/11/17 15:29 - Lungs Lungs: Clear Ascult./Percussion - Airway Airway: Non-obstructed - Cardiovascular Regular Rate - Mental Status Mental Status: Alert & Oriented, Answers Appropriately - Pain Pain Scale: 3 - Nausea Vomiting Nausea Vomiting: Not Present - Hydration Hydration: Ice chips - Discharge PostOp Status: Transfer Patient to floor
[2017-10-11] MEDS ORDERED: Nicotine 21 MG PATCH.TD24 TD SCH (16:00)
[2017-10-11] MEDS: Nicotine 21 MG PATCH.TD24 TD SCH (16:18)
--- NOTE | 2017-10-11 17:54 | Discharge Summary ---
- NOTES TO OUTPATIENT PROVIDER Notes to Outpatient Provider: Admitted with obstructive kidney stone. Had laser ablation and stent placement. Orders not resulted at time of discharge: Pending orders 10/11/17 14:50 Surgical Other [PTH] Routine 10/12/17 04:00 BMP [Basic Metabolic Panel] AM 0400 Complete Blood Count [HEME] AM 0400 Date of Encounter: 10/11/17 Time of Encounter: 17:52 - Discharge Diagnosis (1) Hydronephrosis Priority: Primary Status: Acute Qualifiers: Hydronephrosis type: with renal calculous obstruction Qualified Code(s): N13.2 - Hydronephrosis with renal and ureteral calculous obstruction (2) Hydroureter on right Priority: Primary Status: Acute (3) Urolithiasis Priority: Primary Status: Acute Qualifiers: Urinary calculus location: ureter Qualified Code(s): N20.1 - Calculus of ureter (4) Lumbar radiculitis Priority: Secondary Status: Chronic (5) Elevated blood pressure reading Priority: Secondary Status: Acute (6) Tobacco use Priority: Secondary Status: Chronic Hospital course: Mr. Lawson is a 52 year old male with hx of kidney stones presented to ED with persistent R flank pain. He had been seen on 2 separate recent occasions for the same issue. He continued to have pain and had not passed a known stone. He was placed in observation for further evaluation and treatment. Mr Lawson was placed in observation. He was started on IV fluids, Flomax and pain control. On 10/11 he remained uncomfortable and had not passed stone. At that time he was taken to OR for laser ablation and stent placement. At the current time he feels significantly better. He is eating and pain is controlled. He feels ready for discharge home. Discharge discussed with: patient, family, nurse Time spent discussing smoking cessation with patient: 3 to 10 minutes - Time Spent with Patient Total time spent providing and/or coordinating discharge services: 40min - Discharge Medications Prescriptions: Oxycodone HCl/Acetaminophen [Percocet 10-325 mg Tablet] 1 each PO Q6H PRN 1 Days #5 tablet PRN Reason: Severe Pain Tamsulosin [Flomax] 0.4 mg PO DAILY #10 capsule Home Medications: Gabapentin [Neurontin] 800 mg PO TID 10/10/17 [History] OxyCODONE/APAP 5/325 [Percocet 5/325 MG] 1 tab PO QID PRN 10/10/17 [History] Docusate [Colace] 100 mg PO BID capsule 10/11/17 [Rx] Oxycodone HCl/Acetaminophen [Percocet 10-325 mg Tablet] 1 each PO Q6H PRN 1 Days #5 tablet 10/11/17 [Rx] Tamsulosin [Flomax] 0.4 mg PO DAILY #10 capsule 10/11/17 [Rx] Allergies/Adverse Reactions: 3 Allergy/AdvReac Type Severity Reaction Status Date / Time codeine AdvReac Itching Verified 10/10/17 11:08 tramadol AdvReac Itching Verified 10/10/17 11:08 Date of admission: 10/10/17 10:48 Primary care physician: Faviola Monteiro CNP Consults: Urology Discharging clinician: Ramiro Guerra Anticipated date of discharge: 10/11/17 - Constitutional Vitals: Temp Pulse Resp BP Pulse Ox 98.1 F 76 16 121/78 98 10/11/17 16:45 10/11/17 16:45 10/11/17 16:45 10/11/17 16:45 10/11/17 16:45 General appearance: Present: A&O X 3, pleasant, answers questions appropriately - Head Head exam: Present: normocephalic - Eye Eye exam: Present: EOMI, conjuntiva pink - ENT ENT exam: Present: mucous membranes dry - Respiratory Respiratory exam: Present: CTAB. Absent: rales, rhonchi, wheezes - Cardiovascular Cardiovascular exam: Present: RRR. Absent: tachycardia - GI/Abdominal GI/Abdominal exam: Present: soft. Absent: tenderness - Extremities Exam Extremities exam: Present: warm. Absent: tenderness - Neurological Exam Neurological exam: Present: alert, oriented X3 - Skin Skin exam: Present: dry, warm - Patient Status Disposition: Home, Self-Care Condition: Good Functional capacity at discharge: independent ambulation Overall status at discharge: patient is progressing back to baseline - Discharge Instructions Follow Up With: Keaton Cadena MD [Partnered Physician] - - Diet and Activity Activity: increase activity as tolerated Diet: advance to your usual diet - VTE Documentation of Mechanical Device: Intermittent pneumatic compression device
[2017-10-11 18:01] VITALS: BP 130/86
[2017-10-11] MEDS ORDERED: Gabapentin 400 MG CAPSULE PO SCH (21:00)
== END 2017-10-11 18:30 | disposition home or self-care (01) ==
LOC: 3ANU 09:15 → EMEROO 09:15 → SUATTDRO 10:48 → 3ANU 11:25
PROVIDERS: ADMIT Internal Medicine; ATTEND Internal Medicine